=== PATIENT | female | born 1975 | race Caucasian/White ===

== ENCOUNTER 2022-08-16 08:42 | Emergency (ER) | payer OTHER ==
[~2022-08-16] VITALS: Ht 162.6 cm; Wt 68.0 kg
[2022-08-16 08:50] VITALS: BP_SYST 139
[2022-08-16] MEDS ORDERED: NACL 0.9% 1,000 ML IV ONE (09:00)
[2022-08-16 09:25] LABS: BASOPHILS % (AUTO) 0.3 % (0.0-2.0); EOSINOPHILS # (AUTO) 0.1 K/uL (0.0-0.4); EOSINOPHILS % (AUTO) 1.9 % (0.0-4.0); HEMATOCRIT 39.6 % (36-48); HEMOGLOBIN 13.2 g/dL (12.0-16.0); LYMPHOCYTES # (AUTO) 1.7 K/uL (1.0-5.5); LYMPHOCYTES % (AUTO) 31.8 % (20.5-51.5); MEAN CORPUSCULAR HEMOGLOBIN 31 pg (27-31); MEAN CORPUSCULAR HGB CONC 33 % (32-36); MEAN CORPUSCULAR VOLUME 93 fL (79.0-98.0); MONOCYTES # (AUTO) 0.4 K/uL (0.0-1.0); MONOCYTES % (AUTO) 8.3 % (1.7-9.3); NEUTROPHILS # (AUTO) 3.1 K/uL (1.8-7.7); NEUTROPHILS % (AUTO) 57.7 % (40.0-70.0); PLATELET COUNT (AUTO) 216 K/uL (130-430); RED BLOOD CELL COUNT(AUTO) 4.27 MIL/uL (4.2-6.2); RED CELL DISTRIBUTION WIDTH 13.3 % (9.0-15.0); WHITE BLOOD COUNT (AUTO) 5.4 K/uL (4.8-10.8)
[2022-08-16 09:36] LABS: ANION GAP 8 (5-15); CALCIUM 8.3 mg/dL (8.4-11.0); CHLORIDE 105 mmol/L (98-107); CREATININE 0.52 mg/dL (0.55-1.30); GFR AFRICAN AMERICAN 163 mL/min (>90); GLUCOSE 105 mg/dL (74-106); UREA NITROGEN, BLOOD 15 mg/dL (8-21)
[2022-08-16 09:38] LABS: PROTHROMBIN TIME 10.1 SECS (9.5-12.5)
[2022-08-16 09:41] LABS: ALANINE AMINOTRANSFERASE 17 U/L (12-78); ALBUMIN 3.5 g/dL (3.4-4.8); ASPARTATE AMINOTRANSFERASE 12 U/L (10-37); TOTAL BILIRUBIN 0.4 mg/dL (0.0-1.0)
[2022-08-16] MEDS ORDERED: MORPHINE 4 MG INJ. 4 MG/ML VIAL IVP ONE (09:45)
[2022-08-16] MEDS ORDERED: ONDANSETRON HCL 4 MG/2 ML VIAL IVP ONE (09:45)
[2022-08-16] MEDS ORDERED: iohexoL 350 mgI/mL, 100 ML INFUS..BTL IV ONE (10:11)
[2022-08-16] MEDS ORDERED: ACET-2634 PO (11:10)
[2022-08-16 12:46] VITALS: BP_SYST 148
== END 2022-08-16 12:59 | disposition home or self-care (01) ==
LOC: SED 08:42
DX: N63.22 Unspecified lump in the left breast, upper inner quadrant (principal); R07.2 Precordial pain; M79.662 Pain in left lower leg; R42 Dizziness and giddiness; I10 Essential (primary) hypertension; Z79.899 Other long term (current) drug therapy
CPT/HCPCS: 99285; 96360; 71275; 93971; 71045; 80053; 82550; 83880; 85025; 85610; 85730; 84484; 36415; 81025; 76376; Q9967; J2405; J2270; J7030